=== PATIENT | male | born 1985 | race Caucasian/White ===

== ENCOUNTER 2019-02-22 15:36 | Emergency (ER) | payer OTHER ==
[~2019-02-22] VITALS: Ht 167.6 cm; Wt 83.0 kg
[2019-02-22 15:36] VITALS: Ht 167.6 cm; Wt 83.0 kg
[2019-02-22 16:17] LABS: BASOPHIL % 0.5 % (0-2); PLATELET COUNT 250 x10^3mcL (130-400); RED CELL DISTRIBUTION WIDTH 12.5 % (11.5-14.5)
[2019-02-22 16:31] LABS: CALCIUM 8.3 mg/dL (8.5-10.1); CARBON DIOXIDE 24.8 mmol/L (21-32); CHLORIDE SERUM 103 mmol/L (98-107); CREATININE SERUM 1.2 mg/dL (0.7-1.3); GFR1 > 60 mL/min; GLUCOSE SERUM 183 mg/dL (74-106); POTASSIUM SERUM 3.2 mmol/L (3.5-5.1); SODIUM SERUM 139 mmol/L (136-145)
[2019-02-22 16:36] LABS: ALBUMIN 3.6 g/dL (3.4-5.0); ALKALINE PHOSPHATASE 69 U/L (46-116); ALT/SGPT 34 U/L (16-63); AST/SGOT 19 U/L (15-37); BILIRUBIN TOTAL 0.33 mg/dL (0.20-1.00); TOTAL PROTEIN, SERUM 6.2 g/dL (6.4-8.2)
[2019-02-22 18:32] LABS: microscopic required? NO
[2019-02-22 18:49] LABS: urine erythrocyte NEGATIVE (NEGATIVE)
[2019-02-22 18:59] LABS: AMPHETAMINE QUAL UR NONE DETECTED (See below)
[2019-02-23 00:37] VITALS: BP 106/74
== END 2019-02-23 00:37 ==
LOC: ED 15:36
PROVIDERS: Emergency Medicine
DX: R41.0 Disorientation, unspecified (principal); F20.0 Paranoid schizophrenia; E87.6 Hypokalemia; D72.829 Elevated white blood cell count, unspecified; F12.90 Cannabis use, unspecified, uncomplicated; F17.210 Nicotine dependence, cigarettes, uncomplicated; Z04.6 Encounter for general psychiatric examination, requested by authority; Z98.890 Other specified postprocedural states
CPT/HCPCS: 99406; G0480; J7030; Q0092